=== PATIENT | male | born 1985 | race American Indian/Alaskan Native ===

== ENCOUNTER 2021-06-29 10:51 | Emergency (ER) | payer SELFPAY ==
[2021-06-29] MEDS ORDERED: dexAMETHasone 4 MG/ML VIAL IM ONE (12:11)
[2021-06-29] MEDS ORDERED: IBUPROFEN 800 MG TAB PO ONE (12:11)
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
[2021-06-29 14:06] VITALS: BP 145/86
== END 2021-06-29 15:06 | disposition home or self-care (01) ==
LOC: ED 10:51
DX: M79.18 Myalgia, other site (principal); M25.562 Pain in left knee; M79.602 Pain in left arm; Z72.89 Other problems related to lifestyle; V87.7XXA Person injured in collision between other specified motor vehicles (traffic), initial encounter; Y93.89 Activity, other specified; Y92.488 Other paved roadways as the place of occurrence of the external cause; Y99.8 Other external cause status
CPT/HCPCS: 96372; 99282; J1100